=== PATIENT | male | born 1940 | race Caucasian/White ===

== ENCOUNTER → 2017-07-21 | Outpatient (CLI) | payer OTHER ==
[~2017-07-21] MED LIST: VICODIN 5-3001 EACH PO; ZOFRAN4 MG PO
== END | disposition home or self-care (01) ==
DX: R26.2 Difficulty in walking, not elsewhere classified (principal); M25.562 Pain in left knee; M25.662 Stiffness of left knee, not elsewhere classified; M62.81 Muscle weakness (generalized); M17.12 Unilateral primary osteoarthritis, left knee; Z74.1 Need for assistance with personal care
CPT/HCPCS: 97161 GP; 97165 GO; 97530 GP; 97537 GO; G8978 GP; G8979 GP; G8980 GP; G8987 GO; G8988 GO; G8989 GO

== ENCOUNTER 2017-08-30 22:01 | Inpatient (IN) | payer OTHER ==
[~2017-08-30] VITALS: Ht 177.8 cm; Wt 122.1 kg
[~2017-08-30 22:01] MED LIST changes: +ALTACE2.5 MG PO; +CALCIUM + D3 E1 EACH PO; +ECOTRIN325 MG PO; +HYDROCHLOROTHIA50 MG PO; +HYTRIN5 MG PO; +IRON325 M1 PO; +KLOR-CON M2020 MEQ PO; +LIPITOR40 MG PO; +MOTRIN600 MG PO; +OMEGA 3 PO
[2017-08-31 05:56] VITALS: BP 144/87
[2017-08-31 10:09] LABS: HEMOGLOBIN 13.4 G/DL (12.5-16.6); MCH 30.5 PG (29.0-34.0); MCHC 34.4 G/DL (30.0-36.0); MCV 88.6 FL (86-99); PLATELET COUNT 116 K/uL (156-360); RBC DIS.WIDTH-CV 13.5 % (11.8-14.6); RBC DIS.WIDTH-SD 43.8 % (39-53); WHITE BLOOD COUNT 4.9 K/uL (4.1-10.2)
[2017-08-31 10:40] VITALS: BP 119/65
[2017-08-31 15:47] VITALS: BP 118/73
[2017-08-31 19:55] VITALS: BP 124/60
[2017-09-01 00:25] VITALS: BP 126/73
[2017-09-01 04:20] VITALS: BP 136/73
[2017-09-01 06:04] LABS: HEMATOCRIT 37.4 % (38.0-50.0); HEMOGLOBIN 12.4 G/DL (12.5-16.6); MCV 88.6 FL (86-99)
[2017-09-01 06:27] LABS: CHLORIDE 108 MEQ/L (99-109); CREATININE 1.1 MG/DL (0.6-1.3); GFR ESTIMATE (CALCULATED) > 59 mL/min/ (58.99-99999); GLUCOSE 142 mg/dL (70-99); POTASSIUM 3.4 MEQ/L (3.7-5.4); SODIUM 140 MEQ/L (136-147); UREA NITROGEN (BUN) 20 mg/dL (9-23)
[2017-09-01 11:38] VITALS: BP 158/88
[2017-09-01 15:43] VITALS: BP 151/67
[2017-09-01 20:11] VITALS: BP 140/78
[2017-09-02] VITALS: BP 126/74
[2017-09-02 04:27] VITALS: BP 120/75
[2017-09-02 07:01] LABS: HEMATOCRIT 35.7 % (38.0-50.0); HEMOGLOBIN 12.1 G/DL (12.5-16.6)
[2017-09-02 08:00] VITALS: BP 155/85
[2017-09-02] MEDS ORDERED: SENNA PLUS TAB1 EACH PO (08:47)
[2017-09-02] MEDS ORDERED: ENDOCET 5-3251 EACH PO (08:48)
[2017-09-02] MEDS ORDERED: LOVENOX40 MG/0.4 SC (08:48)
[2017-09-02 16:07] VITALS: BP 131/78
== END 2017-09-02 16:30 | DRG 470 ==
LOC: ENRESERV 22:01 → 2SOUTH 08-31 05:32 → 3WEST 08-31 10:24 → 2SOUTH 08-31 11:03 → 3WEST 09-02 16:30
PROVIDERS: Orthopaedic Surgery
PROC: 0SRD0J9 Replacement of Left Knee Joint with Synthetic Substitute, Cemented, Open Approach (ICD-10-PCS; principal; 2017-08-31)
DX: M17.12 Unilateral primary osteoarthritis, left knee (principal); I10 Essential (primary) hypertension; E78.00 Pure hypercholesterolemia, unspecified; E66.01 Morbid (severe) obesity due to excess calories; Z68.38 Body mass index [BMI] 38.0-38.9, adult; Z96.651 Presence of right artificial knee joint; Z95.5 Presence of coronary angioplasty implant and graft; Z85.828 Personal history of other malignant neoplasm of skin
CPT/HCPCS: 73560; 80048; 85014; 85018; 85027; C1713; J0690; J1650; J2250; J2405; J2795; J7030; J7050